=== PATIENT | male | born 1965 | race Caucasian/White ===

== ENCOUNTER 2024-11-15 09:47 | Outpatient (CLI) | payer OTHER, SELFPAY ==
--- NOTE | 2024-11-15 10:04 | XRR_ITS ---
PROCEDURE INFORMATION: Exam: XR Right Ankle Exam date and time: 11/15/2024 10:19 AM Age: 59 years old Clinical indication: Condition or disease; Other: Wound rle TECHNIQUE: Imaging protocol: Radiologic exam of the right ankle. Views: 1 or 2 views. COMPARISON: CR XR tibia fibula RT 2V [id number] 11/15/2024 10:19 AM FINDINGS: Bones/joints: An Achilles tendon enthesophyte is noted of the calcaneus. No arthropathy is noted. There is a suggestion of some benign periosteal thickening along the medial distal tibial shaft. This is likely a consequence of the patient's prior more proximal tibial fracture as seen on comparison studies. Soft tissues: Three views were generated. There is medial and lateral soft tissue swelling at the ankle but no underlying fracture or foreign body. The lateral view shows a 9.1 mm corticated calcification along the plantar margin of the anterior calcaneal process. This may represent an os peroneum. No adjacent soft tissue swelling is seen and no donor site is observed to suggest that this represents a fracture fragment. XR/XR ankle RT 2V [id number] IMPRESSION: 1. Nonspecific medial and lateral ankle soft tissue swelling. 2. Probable os peroneum without adjacent inflammatory changes. 3. Achilles tendon insertional enthesophyte.
--- NOTE | 2024-11-15 10:04 | XRR_ITS ---
PROCEDURE INFORMATION: Exam: XR Right Knee Exam date and time: 11/15/2024 10:19 AM Age: 59 years old Clinical indication: Condition or disease; Other: Wound rle; Additional info: Wound R ll TECHNIQUE: Imaging protocol: Radiologic exam of the right knee. Views: 3 views. COMPARISON: CR XR ankle RT 2V [id number] 11/15/2024 10:19 AM FINDINGS: Bones/joints: Three views were generated. Right knee is radiographically remarkable for minimal osteophyte formation along the anterior margin of the tibial plateau and medial margins of the medial compartment. Healed fractures of the proximal fibular and tibial shafts are seen as discussed on concurrent right foreleg radiographs. Soft tissues: No subcutaneous emphysema is noted. XR/XR knee RT 3V* [id number] IMPRESSION: 1. Mild medial compartmental osteoarthritic change. 2. No acute right knee pathology. 3. See also right foreleg radiograph report.
--- NOTE | 2024-11-15 10:04 | XRR_ITS ---
PROCEDURE INFORMATION: Exam: XR Right Tibia and Fibula Exam date and time: 11/15/2024 10:19 AM Age: 59 years old Clinical indication: Condition or disease; Other: Wound rle; Additional info: Chronic wound rle TECHNIQUE: Imaging protocol: Radiologic exam of the right tibia and fibula. Views: 2 views. COMPARISON: CR XR ankle RT 2V [id number] 11/15/2024 10:19 AM FINDINGS: Bones/joints: Two views were obtained. Old fractures of the proximal tibia and fibular shafts are demonstrated showing bony union. Some residual cystic changes within the tibial medullary space and distal anterior fracture zone are seen consistent with fibrous union in these regions. There is acquired ankylosis between the proximal tibia and fibular shafts. Multiple surgical clips in the area are also noted. Visible portions of the knee are unremarkable. Soft tissues: No nonsurgical foreign bodies are identified. Along the anterior margin of the tibia the fracture zone, there appears to be a soft tissue ulceration. No subcutaneous emphysema is noted. XR/XR tibia fibula RT 2V [id number] IMPRESSION: 1. 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 2. Postop changes. 3. Soft tissue ulceration, anterior proximal tibial margin at the site of fracture zone. No findings of underlying subcutaneous emphysema or osteomyelitis.
[2024-11-15 11:26] LABS: Hematocrit 44.6 % (37-53); Hemoglobin 14.80 g/dL (11.27-16.99); Mean Corpuscular HGB Conc 33.2 g/dL (30-55); Mean Corpuscular Hemoglobin 31.4 pg (27-33); Mean Corpuscular Volume 94.7 fl (82-101); Nucleated Red Blood Cells % 0 %; Platelet Count 234 10^3/cmm (157-399); Red Blood Count 4.71 10^6/uL (3.85-5.65); White Blood Count 9.80 10^3/uL (3.29-11.43)
[2024-11-15 11:42] LABS: Alanine Aminotransferase 16 U/L (0-41); Albumin Level 4.3 g/dL (3.5-5.2); Alkaline Phosphatase 77 U/L (40-130); Anion Gap 17.6 (5-19); Aspartate Amino Transferase 14 U/L (0-40); Blood Urea Nitrogen 25 mg/dL (8-23); Calcium 9.1 mg/dL (8.5-10.5); Carbon Dioxide 23 mmol/L (22-29); Chloride 103 mmol/L (98-107); Globulin 3.1 g/dL (1.3-4.6); Glucose 90 mg/dL (65-115); Osmolality Calculated 292 mOsm/kg (285-295); Potassium 4.6 mmol/L (3.5-5.1); Prealbumin 27.7 mg/dL (20-40); Sodium 139 mmol/L (136-145); Total Protein 7.4 g/dL (6.6-8.7)
== END 2024-11-15 09:48 | disposition home or self-care (01) ==
PROVIDERS: PCP Nurse Practitioner; Visit Provider Thoracic Surgery (Cardiothoracic Vascular Surgery)
DX: L97.814 Non-pressure chronic ulcer of other part of right lower leg with necrosis of bone (principal); M76.811 Anterior tibial syndrome, right leg; R93.6 Abnormal findings on diagnostic imaging of limbs; M24.674 Ankylosis, right foot; Z97.8 Presence of other specified devices; M79.89 Other specified soft tissue disorders
CPT/HCPCS: 36415; 73562; 73590; 73600; 80053; 84134; 85025; 85651; 86140; 87070; 87077; 87176; 87186; 87205

== ENCOUNTER → 2024-11-29 11:00 | Outpatient (BNVA) | payer OTHER, SELFPAY | PROVIDERS: PCP Nurse Practitioner; Visit Provider Thoracic Surgery (Cardiothoracic Vascular Surgery) | DX: L97.814 Non-pressure chronic ulcer of other part of right lower leg with necrosis of bone (principal) | CPT/HCPCS: 87070; 87176; 87186; 87205 ==

== ENCOUNTER 2024-12-19 15:46 | Outpatient (CLI) | payer OTHER, SELFPAY ==
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
[2024-12-19] MEDS: gadobenate dimeglumine 20 mL vial 16 ML IV (16:59)
== END 2024-12-19 15:47 | disposition home or self-care (01) ==
LOC: RAD 15:49
PROVIDERS: PCP Nurse Practitioner; Visit Provider Student in an Organized Health Care Education/Training Program
DX: M86.9 Osteomyelitis, unspecified (principal); S81.801A Unspecified open wound, right lower leg, initial encounter; X58.XXXA Exposure to other specified factors, initial encounter; M71.21 Synovial cyst of popliteal space [Baker], right knee
CPT/HCPCS: 73720

== ENCOUNTER → 2025-01-07 11:30 | Outpatient (BNVA) | payer OTHER, SELFPAY | PROVIDERS: PCP Nurse Practitioner; Visit Provider Student in an Organized Health Care Education/Training Program | DX: M86.461 Chronic osteomyelitis with draining sinus, right tibia and fibula (principal) | CPT/HCPCS: 87070; 87075; 87077; 87186; 87205 ==

== ENCOUNTER → 2025-01-08 11:45 | Day surgery (SDC) | payer OTHER, SELFPAY ==
--- NOTE | 2025-01-08 11:51 | XR_ITS ---
WS: [id number] Exam: XR chest 1V portable [id number] Date/Time of Exam: 01/08/2025 11:51 AM Reason For Exam: Post PICC insertion No priors. Right-sided PICC line has been placed and ends in the lower one third of the SVC in satisfactory position. The lungs are clear. Normal cardiomediastinal silhouette and bony structures. Surgical clips along the LEFT axilla. XR/XR chest 1V portable [id number] IMPRESSION: 1. Right-sided PICC line ending in the lower one third of the SVC in good posit ion. No acute cardiopulmonary finding.
[2025-01-08 12:00] VITALS: BP 181/87; PULSE 56; RESP 16; TEMP 36.3; O2SAT 97
[2025-01-08] MEDS: piperacillin-tazobactam 4.5 GM in sodium chloride 0.9% (plus) 50 ML IV (12:50)
--- NOTE | 2025-01-08 13:48 | PICC.NOTE ---
Single lumen PICC placed to right basilic vein. Referred to vascular access nurse for PICC placement due to osteo of tibia and need for IV antibiotics x 6 weeks. Risks and benefits discussed and informed consent obtained from pt. Right arm assessed with right basilic vein measuring 5.2 mm, straight, and apparent best choice for placement. Using sterile technique and MST, right basilic vein accessed x 1 stick. Mid-arm circumference measured 10 cm from right AC 29 cm. Trimmed cath 44 cm with 0 cm external length noted. CXR shows tip in distal third of SVC, in good position for use per radiologist. Line secured with stat-lock. Insertion site covered with Biopatch and TSM. Report given to [facility]. PICC report faxed to [facility] pharmacy and courtesy phone call made updating team on successful PICC insertion and first dose of Zosyn at 1300. Pt given appointment date at [facility] for PICC dressing change and lab draws tomorrow at 12:15. Home teaching on how to flush PICC with saline and administer medication completed. Printed teaching material provided. Patient and significant other verbalized understanding. No questions voiced.
== END ==
LOC: GILAB 11:48
PROVIDERS: PCP Nurse Practitioner; Visit Provider Student in an Organized Health Care Education/Training Program
DX: M86.669 Other chronic osteomyelitis, unspecified tibia and fibula (principal)
CPT/HCPCS: 36573; 71045; 96365; J2543

== ENCOUNTER 2025-01-09 12:00 | Oncology outpatient (recurring) (ONCR) | payer OTHER, SELFPAY ==
[2025-01-09 12:41] LABS: Hematocrit 40.3 % (37-53); Hemoglobin 13.70 g/dL (11.27-16.99); Mean Corpuscular HGB Conc 34.0 g/dL (30-55); Mean Corpuscular Hemoglobin 31.9 pg (27-33); Mean Corpuscular Volume 93.9 fl (82-101); Nucleated Red Blood Cells % 0 %; Platelet Count 197 10^3/cmm (157-399); Red Blood Count 4.29 10^6/uL (3.85-5.65); White Blood Count 10.64 10^3/uL (3.29-11.43)
== END 2025-01-14 23:59 | disposition home or self-care (01) ==
PROVIDERS: PCP Nurse Practitioner; Visit Provider Student in an Organized Health Care Education/Training Program
DX: M86.669 Other chronic osteomyelitis, unspecified tibia and fibula (principal)
CPT/HCPCS: 36592; 85025

== ENCOUNTER 2025-02-13 11:00 | Oncology outpatient (recurring) (ONCR) | payer OTHER, SELFPAY ==
[2025-01-16 12:01] LABS: Hematocrit 41.4 % (37-53); Hemoglobin 14.20 g/dL (11.27-16.99); Mean Corpuscular HGB Conc 34.3 g/dL (30-55); Mean Corpuscular Hemoglobin 32.3 pg (27-33); Mean Corpuscular Volume 94.3 fl (82-101); Platelet Count 211 10^3/cmm (157-399); Red Blood Count 4.39 10^6/uL (3.85-5.65); White Blood Count 10.45 10^3/uL (3.29-11.43)
[2025-01-16 12:44] LABS: Total Cells Counted 100 (0-100)
[2025-01-16 12:47] LABS: Absolute Segmented Neutrophil 7.3 10/cmm (1.6-7.1); Atypical Lymphs 1.0 % (0-5); Band Neutrophils Absolute 0.0 10^3/cmm (0.0-1.2)
[2025-01-23 11:50] LABS: Hematocrit 42.3 % (37-53); Hemoglobin 14.30 g/dL (11.27-16.99); Mean Corpuscular HGB Conc 33.8 g/dL (30-55); Mean Corpuscular Hemoglobin 31.4 pg (27-33); Mean Corpuscular Volume 93.0 fl (82-101); Nucleated Red Blood Cells % 0 %; Platelet Count 191 10^3/cmm (157-399); Red Blood Count 4.55 10^6/uL (3.85-5.65); White Blood Count 10.84 10^3/uL (3.29-11.43)
[2025-01-23 12:46] LABS: Alanine Aminotransferase 20 U/L (0-41); Albumin Level 4.5 g/dL (3.5-5.2); Alkaline Phosphatase 70 U/L (40-130); Aspartate Amino Transferase 17 U/L (0-40); Globulin 3.6 g/dL (1.3-4.6); Total Protein 8.1 g/dL (6.6-8.7)
[2025-01-30 11:20] VITALS: BP 114/72; PULSE 76; RESP 16; TEMP 36.7; O2SAT 96
[2025-01-30 11:21] LABS: Hematocrit 41.5 % (37-53); Hemoglobin 14.00 g/dL (11.27-16.99); Mean Corpuscular HGB Conc 33.7 g/dL (30-55); Mean Corpuscular Hemoglobin 32.0 pg (27-33); Mean Corpuscular Volume 94.7 fl (82-101); Nucleated Red Blood Cells % 0 %; Platelet Count 208 10^3/cmm (157-399); Red Blood Count 4.38 10^6/uL (3.85-5.65); White Blood Count 11.48 10^3/uL (3.29-11.43)
[2025-01-30 11:42] LABS: Alanine Aminotransferase 20 U/L (0-41); Albumin Level 4.3 g/dL (3.5-5.2); Alkaline Phosphatase 69 U/L (40-130); Aspartate Amino Transferase 17 U/L (0-40); Globulin 3.2 g/dL (1.3-4.6); Total Protein 7.5 g/dL (6.6-8.7)
[2025-02-06 11:43] LABS: Hematocrit 41.5 % (37-53); Hemoglobin 14.30 g/dL (11.27-16.99); Mean Corpuscular HGB Conc 34.5 g/dL (30-55); Mean Corpuscular Hemoglobin 31.9 pg (27-33); Mean Corpuscular Volume 92.6 fl (82-101); Nucleated Red Blood Cells % 0 %; Platelet Count 212 10^3/cmm (157-399); Red Blood Count 4.48 10^6/uL (3.85-5.65); White Blood Count 11.40 10^3/uL (3.29-11.43)
[2025-02-13 11:51] LABS: Hematocrit 43.4 % (37-53); Hemoglobin 14.70 g/dL (11.27-16.99); Mean Corpuscular HGB Conc 33.9 g/dL (30-55); Mean Corpuscular Hemoglobin 31.7 pg (27-33); Mean Corpuscular Volume 93.7 fl (82-101); Nucleated Red Blood Cells % 0 %; Platelet Count 203 10^3/cmm (157-399); Red Blood Count 4.63 10^6/uL (3.85-5.65); White Blood Count 11.88 10^3/uL (3.29-11.43)
[2025-02-13 12:11] LABS: Alanine Aminotransferase 33 U/L (0-41); Albumin Level 4.5 g/dL (3.5-5.2); Alkaline Phosphatase 70 U/L (40-130); Aspartate Amino Transferase 21 U/L (0-40); Globulin 3.3 g/dL (1.3-4.6); Total Protein 7.8 g/dL (6.6-8.7)
== END 2025-02-14 23:59 | disposition home or self-care (01) ==
PROVIDERS: PCP Nurse Practitioner; Visit Provider Student in an Organized Health Care Education/Training Program
DX: M86.669 Other chronic osteomyelitis, unspecified tibia and fibula; Z53.9 Procedure and treatment not carried out, unspecified reason
CPT/HCPCS: 36415; 36592; 80076; 82565; 85007; 85025; 85027; 86140

== ENCOUNTER 2025-02-27 11:00 | Oncology outpatient (recurring) (ONCR) | payer OTHER, SELFPAY ==
[2025-02-20 12:04] LABS: Hematocrit 41.4 % (37-53); Hemoglobin 14.00 g/dL (11.27-16.99); Mean Corpuscular HGB Conc 33.8 g/dL (30-55); Mean Corpuscular Hemoglobin 31.5 pg (27-33); Mean Corpuscular Volume 93.2 fl (82-101); Nucleated Red Blood Cells % 0 %; Platelet Count 211 10^3/cmm (157-399); Red Blood Count 4.44 10^6/uL (3.85-5.65); White Blood Count 10.72 10^3/uL (3.29-11.43)
[2025-02-20 12:21] LABS: Alanine Aminotransferase 24 U/L (0-41); Albumin Level 4.2 g/dL (3.5-5.2); Alkaline Phosphatase 69 U/L (40-130); Aspartate Amino Transferase 17 U/L (0-40); Globulin 3.1 g/dL (1.3-4.6); Total Protein 7.3 g/dL (6.6-8.7)
== END 2025-03-16 23:59 | disposition home or self-care (01) ==
PROVIDERS: PCP Nurse Practitioner; Visit Provider Student in an Organized Health Care Education/Training Program
DX: Z53.9 Procedure and treatment not carried out, unspecified reason; M86.669 Other chronic osteomyelitis, unspecified tibia and fibula
CPT/HCPCS: 80076; 82565; 85025; 86140